=== PATIENT | female | born 1990 ===

== ENCOUNTER 2023-10-17 11:53 | Emergency (ER) | payer OTHER, SELFPAY | END 2023-10-17 13:18 | disposition left against medical advice (07) | PROVIDERS: Emergency Provider Emergency Medicine | DX: L97.129 Non-pressure chronic ulcer of left thigh with unspecified severity (principal); M79.652 Pain in left thigh; Z53.21 Procedure and treatment not carried out due to patient leaving prior to being seen by health care provider ==